=== PATIENT | female | born 1940 ===

== ENCOUNTER 2020-05-09 09:50 | Emergency (ER) | payer MEDICARE, MEDICAID ==
[~2020-05-09] VITALS: Ht 160 cm; Wt 82.6 kg
--- NOTE | 2020-05-09 10:27 | NUR ---
AMBULATED TO ROOM FROM LOBBY WITHOUT ASSISTANCE.STATES SHE HAS HAD SOB FOR A MONTH THAT IS WORSENING. C/O ORTHOPNEA AND SOB WITH EXERTION
[2020-05-09 10:50] LABS: BASOPHILS # (AUTO) 0.01 x10^3/uL (0-0.1); BASOPHILS % (AUTO) 0 % (0-1); EOSINOPHILS # (AUTO) 0.11 x10^3/uL (0-0.4); EOSINOPHILS % (AUTO) 2 % (1-7); LYMPHOCYTES # (AUTO) 0.84 x10^3/uL (1-3.4); LYMPHOCYTES % (AUTO) 17 % (22-44); MD NO; MEAN CORPUSCULAR HEMOGLOBIN 28.8 pg (27.0-34.8); MEAN CORPUSCULAR HGB CONC 32.6 g/dL (32.4-35.8); MEAN CORPUSCULAR VOLUME 88.3 fL (80-100); MEAN PLATELET VOLUME 9.3 fL (7.4-10.4); MONOCYTES # (AUTO) 0.25 x10^3/uL (0.2-0.8); MONOCYTES % (AUTO) 5 % (2-9); NEUTROPHILS # (AUTO) 3.77 x10^3/uL (1.8-6.8); NEUTROPHILS % (AUTO) 76 % (42-75); PLATELET COUNT 164 x10^3/uL (130-400); RED BLOOD COUNT 4.69 x10^6/uL (3.82-5.3); RED CELL DISTRIBUTION WIDTH 15.6 % (9.6-15.2)
[2020-05-09 10:55] LABS: ALBUMIN 3.2 g/dL (3.4-5.0); ANION GAP 11 mmol/L (5-15); CALCIUM 8.4 mg/dL (8.5-10.1); CHLORIDE 111 mmol/L (98-107)
[2020-05-09 11:00] LABS: ALANINE AMINOTRANSFERASE 31 U/L (12-78); ALKALINE PHOSPHATASE 94 U/L (45-117); BILIRUBIN,TOTAL 1.2 mg/dL (0.2-1.0); CREATININE 0.76 mg/dL (0.55-1.02); TROPONIN I 0.019 ng/mL (0.000-0.045)
--- NOTE | 2020-05-09 11:23 | NUR ---
IV INSERTED AND AWAITING CTA. SPEAKS FULL SENTENCES BUT PRESENTING LIKE DIFFICULTY BREATHING.
[2020-05-09] MEDS ORDERED: OMNIPAQUE 350 MG/ML, 75ML BOTTLE ONE (11:43)
--- NOTE | 2020-05-09 12:20 | NUR ---
CTA COMPLETED AND AWAITING DISPO
[2020-05-09 13:02] VITALS: BP 136/91
== END 2020-05-09 13:12 | disposition home or self-care (01) ==
LOC: ED 11:21
DX: I11.0 Hypertensive heart disease with heart failure (principal); I50.1 Left ventricular failure, unspecified; R06.02 Shortness of breath; M79.661 Pain in right lower leg; M79.662 Pain in left lower leg; R00.0 Tachycardia, unspecified; R07.9 Chest pain, unspecified
CPT/HCPCS: 36415; 71045; 71275; 80053; 83880; 84484; 85025; 85379; 93005; 99285; Q9967